=== PATIENT | female | born 1985 | race African-American/Black ===

== ENCOUNTER 2023-08-30 16:47 | Emergency (ER) | payer OTHER, SELFPAY ==
[2023-08-30 16:50] VITALS: BP 130/88; BMI 45.5
--- NOTE | 2023-08-30 17:47 | ED.GENMED ---
History of Present Illness
General
Chief Complaint: Musculo-Skeletal Complaint
Source: patient
Exam Limitations: none
Time Seen by Provider: 08/30/23 17:05
Travel History
Have you had any contact with someone who has COVID-19?: No
Do you have any symptoms of coronavirus? Fever > 100 degrees, chills, cough, shortness of breath, sore throat, loss of taste or smell, muscle aches, or headache?: No
History of Present Illness
History of Present Illness:
See MDM
Past History
Past History
ED Past Medical History: None
ED Past Surgical History: None
Social History
Tobacco: Non-smoker
Alcohol: None
Phy Exam
Physical Exam
Physical Exam:
See MDM
Course
Orders/Labs/Results
Orders:
Orders
08/30/23 17:43
Ketorolac [Toradol] 30 mg IV NOW STA
08/30/23 17:44
Test Result ONCE
US Abdomen Complete/Upper Urgent
Comment:
Reason For Exam: RUQ pain
08/30/23 17:46
Electrocardiogram (*1) Urgent
Reason for Study: Chest Pain
EKG- Treatment ONCE
08/30/23 18:02
Complete Blood Count/With Diff Urgent
Comprehensive Metabolic Panel Urgent
HCG, Serum Qualitative Screen Urgent
Lipase Urgent
Abnormal Lab Results
08/30/23
18:02
RBC 3.83 L 10^6/uL
(4.20-5.40)
Hgb 11.5 L g/dL
(12.0-16.0)
Hct 34.2 L %
(37.0-47.0)
Absolute Monos (auto) 0.7 H 10^3/uL
(0.1-0.6)
Monocytes % 10.7 H %
(1.7-9.3)
08/30/23 18:02
08/30/23 18:02
Vital Signs
Initial and Last Documented VS:
Initial Vital Signs
Temp Pulse Resp BP Pulse Ox
97.6 F 92 16 130/88 99
08/30/23 16:50 08/30/23 16:50 08/30/23 16:50 08/30/23 16:50 08/30/23 16:50
Last Documented Vital Signs
Temp Pulse Resp BP Pulse Ox
97.6 F 92 16 130/88 99
08/30/23 16:50 08/30/23 16:50 08/30/23 16:50 08/30/23 16:50 08/30/23 16:50
MDM/Problems Addressed
Differential Diagnosis Includes:
HPI and MDM Narrative:
38-year-old female presenting with right upper quadrant pain, right shoulder pain and right rib pain over the past day that has worsened. Although she denies pain with food intake, she states pain is worse when she takes a deep breath or if she
lays back.
On exam, she does have right upper quadrant tenderness. Lungs are clear. Given her history, will start with right upper quadrant ultrasound to rule out gallbladder pathology
Physical exam
General: Well appearing and non-toxic
HEENT: protecting airway
Neck: appears supple
CV: No evidence of cyanosis
Resp: No accessory muscle use. Lungs clear
Abd: Non-distended. Right upper quadrant tenderness
Extremities: No deformities
Neuro: alert
Psych: Normal affect
Skin: Intact
Problems Addressed including Acute and Chronic Conditions affecting care:
1. Right upper quadrant pain
Acuity: acute
Prognosis: stable
Details: Will obtain ultrasound gallbladder pathology
Updates
Labs without clinical significance. Ultrasound negative for acute pathology. On reassessment after Toradol, all symptoms completely resolved. We did discussed the possibility of pleuritic chest pain and also discussed going further with a CT to
rule out PE versus other intrathoracic abnormalities. Patient acknowledges and feels comfortable going home knowing that she can come back at any time
We discussed incidental nonobstructing kidney stone
Differential Diagnosis (but not limited to): Pleurisy, acute cholecystitis, PE
Testing considered: D-dimer
Drug therapy (if applicable): OTC meds, please see d/c instruction regarding Rx drugs
Amount and/or Complexity of Data Reviewed
Clinical info obtained from: Patient
External data reviewed: N/A
Labs I independently reviewed (but not limited to): LFTs within normal limits
Radiology: ultrasound report reviewed
Pulse Ox: not hypoxic
EKG independently reviewed: N/A
Filling Room Operator: Sinus rhythm, normal axis, no STEMI
Critical Care: N/A
Risk of Complication:
Social Determinants of health: Good social support
Discussed with other providers: N/A
Escalation of Care includes Admit/Obs: After being observed in the Emergency Department, pt stable for discharge.
Occasional wrong word or 'sound a like' substitutions may have occurred due to the inherent limitations of voice recognition software. Read the chart carefully and recognize, using context, where substitutions have occurred.
*Critical Care Note
Total Time (30-74mins, 75-104mins- exclusive of procedures): Not Applicable
ED Attending Note
-
Portions of this chart may have been created with voice recognition software.� Occasional wrong word or��sound alike� substitutions may have occurred due to the inherent limitations of voice recognition software.
Discharge Plan
Departure
Patient Disposition: Home (Routine Discharge)
Date of Disposition: 08/30/23
Time of Disposition: 20:19
Patient with high blood pressure during this ER visit?: No
Discharge Problem:
Pleuritic chest pain
Instructions: Pleuritic Chest Pain ED
Prescriptions:
New
diclofenac potassium 50 mg tablet
50 mg PO BID Qty: 14 0RF
Referrals:
Ness Jordan CRNP [Family Provider] -
Activity Restrictions/Additional Instructions:
Please return for any worsening symptoms.
You may return at any time if you have further concerns.
Please follow up with your doctor at the first available appointment, preferably this week.
Thank you for choosing [facility].
Interventions
Interventions:
*Risk Screen - Suicide Last Done: 08/30/23 16:50
*General Assessment Last Done: 08/30/23 17:54
*Neglect/Abuse Screening Last Done: 08/30/23 16:50
*ED COVID-19 Vaccine History Last Done: 08/30/23 16:50
ED-Musculoskeletal Assessment Last Done: 08/30/23 17:54
Discharge Date and Time
Print Language: GREEK
[2023-08-30] MEDS: TORADOL 30 MG IV (18:02)
[2023-08-30 18:13] LABS: % Basophils 0.5 % (0-2); % Immature Granulocytes 0.3 % (0-0.5); % Lymphocytes 28.2 % (20.5-51.1); % Monocytes 10.7 % (1.7-9.3); % Neutrophils 58.3 % (42.2-75.2); Absolute Eosinophils 0.1 10^3/uL (0-0.7); Absolute Lymphocytes 1.8 10^3/uL (1.2-3.4); Absolute Monocytes 0.7 10^3/uL (0.1-0.6); Absolute Neutrophils 3.7 10^3/uL (1.4-6.5); Hematocrit 34.2 % (37.0-47.0); Hemoglobin 11.5 g/dL (12.0-16.0); Mean Corp Hgb Conc. 33.6 g/dL (33.0-37.0); Mean Corpuscular Volume 89.3 fL (81.0-99.0); Mean Platelet Volume 8.5 fL (7.4-10.4); Nucleated Red Blood Cells % 0 %; Platelet Count 275 10^3/uL (130-400); Red Blood Cell Count 3.83 10^6/uL (4.20-5.40); Red Cell Dist. Width 13.4 % (11.5-14.5); White Blood Cell Count 6.4 10^3/uL (4.8-10.8)
[2023-08-30 18:24] LABS: HCG, Serum Qualitative Screen Negative
[2023-08-30 18:28] LABS: ALT (SGPT) 17 U/L (0-35); AST (SGOT) 20 U/L (14-36); Albumin 3.8 g/dl (3.5-5.0); Alkaline Phosphatase 49 U/L (38-126); Blood Urea Nitrogen 14 mg/dl (7-17); Calcium 8.9 mg/dl (8.4-10.2); Carbon Dioxide 25 mmol/L (22-30); Chloride 107 mmol/L (98-107); Estimated Creatinine Clearance 121 ml/min; Glucose 94 mg/dl (70-99); Lipase 109 U/L (23-300); Potassium 3.9 mmol/L (3.5-5.1); Sodium 135 mmol/L (135-145); Total Bilirubin 0.4 mg/dl (0.2-1.3); Total Protein 6.9 g/dl (6.3-8.2); eGFR > 60.00
[2023-08-30 20:17] VITALS: BP 121/81
== END 2023-08-30 20:25 | disposition home or self-care (01) ==
LOC: EMR 16:47
PROVIDERS: EMERGENCY PHYSICIAN Student in an Organized Health Care Education/Training Program; FAMILY PHYSICIAN Nurse Practitioner Family
DX: R07.81 Pleurodynia (principal); R10.11 Right upper quadrant pain; M25.511 Pain in right shoulder
CPT/HCPCS: 99284; 96374; 76700; 80053; 83690; 84703; 85025; 93005